=== PATIENT | female | born 1970 | race Caucasian/White ===

== ENCOUNTER 2018-07-12 10:07 | Emergency (ER) | payer BC | END 2018-07-12 10:44 | disposition home or self-care (01) | LOC: NAV ERS 10:07 | DX: M54.6 Pain in thoracic spine (principal); E78.5 Hyperlipidemia, unspecified; E66.9 Obesity, unspecified; K21.9 Gastro-esophageal reflux disease without esophagitis; J45.909 Unspecified asthma, uncomplicated; Z79.899 Other long term (current) drug therapy | CPT/HCPCS: 99283 ==